=== PATIENT | female | born 1990 | race Caucasian/White ===

== ENCOUNTER 2017-12-22 08:49 | Outpatient (CLI) | payer SELFPAY ==
[~2017-12-22] VITALS: Ht 157.5 cm; Wt 61.8 kg
[2017-12-22 09:00] VITALS: BP 91/54
[2017-12-22 09:52] LABS: AMPHETAMINE SCREEN, URINE Negative (Negative); BARBITURATE SCREEN, URINE Negative (Negative); BENZODIAZEPINE SCREEN, URINE Negative (Negative); CANNABINOID SCREEN, URINE Negative (Negative); COCAINE SCREEN, URINE Negative (Negative); METHADONE SCREEN, URINE Negative (Negative); OPIATE SCREEN, URINE Negative (Negative)
[2017-12-22 10:05] LABS: MICROSCOPIC INDICATED
== END 2017-12-22 12:06 | disposition home or self-care (01) ==
LOC: LDOP 08:49
PROVIDERS: ATTEND Obstetrics & Gynecology
DX: O26.893 Other specified pregnancy related conditions, third trimester (principal); R10.9 Unspecified abdominal pain; Z3A.29 29 weeks gestation of pregnancy
CPT/HCPCS: 36415; 59025; 80307; 81001; 82731; 87077; 87086; 87186; 99201; G0463

== ENCOUNTER 2018-01-23 20:39 | Outpatient (CLI) | payer SELFPAY ==
[2018-01-23] MEDS ORDERED: TERBUTALINE 1 MG/ML, 1ML ONE (21:20)
[2018-01-23] MEDS ORDERED: LACTATED RINGERS 1,000 ML IVBOLUS ONE (21:30)
[2018-01-23] MEDS ORDERED: TERBUTALINE 1 MG/ML, 1ML SQ ONE (21:30)
[2018-01-23] MEDS ORDERED: LACTATED RINGERS 1,000 ML IV SCH (21:30)
[2018-01-23] MEDS ORDERED: PLEASE ENTER HEIGHT AND WEIGHT MC SCH (21:30)
[2018-01-24 00:16] LABS: AMPHETAMINE SCREEN, URINE Negative (Negative); BARBITURATE SCREEN, URINE Negative (Negative); BENZODIAZEPINE SCREEN, URINE Negative (Negative); CANNABINOID SCREEN, URINE Negative (Negative); COCAINE SCREEN, URINE Negative (Negative); METHADONE SCREEN, URINE Negative (Negative); OPIATE SCREEN, URINE Negative (Negative)
== END 2018-01-23 23:55 | disposition home or self-care (01) ==
LOC: LDOP 20:39
PROVIDERS: ATTEND Obstetrics & Gynecology
DX: O26.893 Other specified pregnancy related conditions, third trimester (principal); R10.9 Unspecified abdominal pain; Z3A.34 34 weeks gestation of pregnancy
CPT/HCPCS: 80307; J3105; J7120; 59025; 96360; 96361; 96372; 99211; G0463

== ENCOUNTER 2018-02-21 21:44 | Observation (INO) | payer OTHER ==
[~2018-02-21] VITALS: Ht 154.9 cm; Wt 68.0 kg
[2018-02-21 22:25] LABS: BASOPHILS # (AUTO) 0.06 x10^3/uL (0-0.1); BASOPHILS % (AUTO) 1 % (0-1); EOSINOPHILS # (AUTO) 0.01 x10^3/uL (0-0.4); EOSINOPHILS % (AUTO) 0 % (1-7); LYMPHOCYTES # (AUTO) 1.18 x10^3/uL (1-3.4); LYMPHOCYTES % (AUTO) 14 % (22-44); MD NO; MEAN CORPUSCULAR HGB CONC 34.7 g/dL (32.4-35.8); MEAN CORPUSCULAR VOLUME 92.3 fL (80-100); MEAN PLATELET VOLUME 11.2 fL (7.4-10.4); MONOCYTES % (AUTO) 5 % (2-9); NEUTROPHILS # (AUTO) 6.99 x10^3/uL (1.8-6.8); NEUTROPHILS % (AUTO) 81 % (42-75); PLATELET COUNT 142 x10^3/uL (130-400); RED BLOOD COUNT 3.77 x10^6/uL (3.82-5.3); RED CELL DISTRIBUTION WIDTH 12.9 % (9.6-15.2)
[2018-02-21 22:31] LABS: ALANINE AMINOTRANSFERASE 12 U/L (12-78); ALBUMIN 2.6 g/dL (3.4-5.0); ANION GAP 10 mmol/L (5-15); CALCIUM 8.7 mg/dL (8.5-10.1); CHLORIDE 103 mmol/L (98-107); CREATININE 0.72 mg/dL (0.55-1.02)
[2018-02-21 22:34] LABS: ALKALINE PHOSPHATASE 205 U/L (45-117); BILIRUBIN,TOTAL 0.4 mg/dL (0.2-1.0); TOTAL PROTEIN 7.1 g/dL (6.4-8.2)
[2018-02-21 22:39] LABS: MICROSCOPIC AUTO
[2018-02-21 22:50] LABS: AMPHETAMINE SCREEN, URINE Negative (Negative); BARBITURATE SCREEN, URINE Negative (Negative); BENZODIAZEPINE SCREEN, URINE Negative (Negative); CANNABINOID SCREEN, URINE Negative (Negative); COCAINE SCREEN, URINE Negative (Negative); METHADONE SCREEN, URINE Negative (Negative); OPIATE SCREEN, URINE Negative (Negative)
[2018-02-22] MEDS ORDERED: CEFTRIAXONE 1,000 MG in SODIUM CHLORIDE 0.9% 50 ML IV SCH
[2018-02-22] MEDS ORDERED: ACETAMINOPHEN 325 MG TABLET PO PRN
[2018-02-22] MEDS: LACTATED RINGERS 1,000 ML IV SCH ×2 (00:20→06:48)
[2018-02-22 06:50] VITALS: BP 87/52
[2018-02-22] MEDS ORDERED: PRENATAL VIT/IRON/FA 1 EACH TABLET PO SCH (09:00)
[2018-02-22] MEDS ORDERED: PREN1TAB60 PO (13:36)
== END 2018-02-22 14:18 | disposition home or self-care (01) ==
LOC: LDOP 21:44 → LDIP 23:40
PROVIDERS: ADMIT Obstetrics & Gynecology; ATTEND Obstetrics & Gynecology
DX: O23.03 Infections of kidney in pregnancy, third trimester (principal); Z3A.38 38 weeks gestation of pregnancy; Z37.0 Single live birth
CPT/HCPCS: 36415; 59025; 76770; 76815; 80053; 80307; 81001; 85025; 86592; 86762; 86850; 86900; 87081; 87340; 87806; 96360; 96361; 96365; G0378; J0696; J7120; G0475

== ENCOUNTER 2018-03-02 14:27 | Observation (INO) | payer SELFPAY ==
[~2018-03-02] VITALS: Ht 154.9 cm; Wt 67.3 kg
[~2018-03-02 14:27] MED LIST: PREN1TAB60 PO
[2018-03-02 14:39] VITALS: BP 94/56
[2018-03-02 15:15] LABS: MICROSCOPIC NOT IND
[2018-03-02 15:38] LABS: AMPHETAMINE SCREEN, URINE Negative (Negative); BARBITURATE SCREEN, URINE Negative (Negative); BENZODIAZEPINE SCREEN, URINE Negative (Negative); CANNABINOID SCREEN, URINE Negative (Negative); COCAINE SCREEN, URINE Negative (Negative); METHADONE SCREEN, URINE Negative (Negative); OPIATE SCREEN, URINE Negative (Negative)
[2018-03-02] MEDS ORDERED: LACTATED RINGERS 1,000 ML IVBOLUS ONE (16:00)
[2018-03-02 16:14] LABS: HEMOGLOBIN A1C 5.1 % (4.2-6.3)
[2018-03-07] MEDS ORDERED: IBUP-1222 PO (11:15)
== END 2018-03-02 20:18 | disposition home or self-care (01) ==
LOC: LDOP 14:27 → LDIP 15:49
PROVIDERS: ADMIT Obstetrics & Gynecology; ATTEND Obstetrics & Gynecology
DX: O99.89 Other specified diseases and conditions complicating pregnancy, childbirth and the puerperium (principal); O26.893 Other specified pregnancy related conditions, third trimester; M54.9 Dorsalgia, unspecified; R10.9 Unspecified abdominal pain; Z3A.39 39 weeks gestation of pregnancy; Z79.899 Other long term (current) drug therapy
CPT/HCPCS: 36415; 59025; 80307; 81003; 82962; 83036; 87086; 87491; 87591; 96360; 96361; G0378; J7120

== ENCOUNTER 2018-06-01 15:33 | Emergency (ER) | payer MEDICAID, OTHER ==
[~2018-06-01] VITALS: Ht 154.9 cm; Wt 54.2 kg
[~2018-06-01 15:33] MED LIST changes: +IBUP-1222 PO
[2018-06-01 16:12] LABS: BASOPHILS # (AUTO) 0.04 x10^3/uL (0-0.1); BASOPHILS % (AUTO) 0 % (0-1); EOSINOPHILS # (AUTO) 0.08 x10^3/uL (0-0.4); EOSINOPHILS % (AUTO) 1 % (1-7); LYMPHOCYTES % (AUTO) 18 % (22-44); MD NO; MEAN CORPUSCULAR HEMOGLOBIN 29.9 pg (27.0-34.8); MEAN CORPUSCULAR HGB CONC 33.4 g/dL (32.4-35.8); MEAN CORPUSCULAR VOLUME 89.5 fL (80-100); MEAN PLATELET VOLUME 12.6 fL (7.4-10.4); MONOCYTES # (AUTO) 0.47 x10^3/uL (0.2-0.8); MONOCYTES % (AUTO) 5 % (2-9); NEUTROPHILS % (AUTO) 75 % (42-75); PLATELET COUNT 159 x10^3/uL (130-400); RED BLOOD COUNT 4.61 x10^6/uL (3.82-5.3); RED CELL DISTRIBUTION WIDTH 13.9 % (9.6-15.2)
[2018-06-01 16:23] LABS: ALANINE AMINOTRANSFERASE 27 U/L (12-78); ALBUMIN 3.7 g/dL (3.4-5.0); ANION GAP 8 mmol/L (5-15); CALCIUM 8.4 mg/dL (8.5-10.1); CHLORIDE 105 mmol/L (98-107)
[2018-06-01 16:27] LABS: ALKALINE PHOSPHATASE 87 U/L (45-117); BILIRUBIN,TOTAL 0.3 mg/dL (0.2-1.0); TOTAL PROTEIN 7.4 g/dL (6.4-8.2)
[2018-06-01 16:38] LABS: MICROSCOPIC INDICATED
[2018-06-01 16:42] LABS: CULTURE INDICATED? YES
[2018-06-01 17:54] VITALS: BP 108/59
== END 2018-06-01 18:12 | disposition home or self-care (01) ==
LOC: ED 16:57
DX: N92.0 Excessive and frequent menstruation with regular cycle (principal)
CPT/HCPCS: 36415; 76830; 80053; 81001; 84702; 85025; 87086; 99285